=== PATIENT | male | born 1970 | race Two or more races ===

== ENCOUNTER 2017-08-30 14:15 | Inpatient (IN) | payer OTHER ==
[~2017-08-30] VITALS: Ht 182.9 cm; Wt 107.0 kg
[2017-08-30 14:23] VITALS: Ht 182.9 cm; Wt 107.0 kg
[2017-08-30 15:03] LABS: microscopic required? NO
[2017-08-30 15:10] LABS: UA SPECIFIC GRAVITY <=1.005 (1.005-1.035); urine erythrocyte NEGATIVE (NEGATIVE)
[2017-08-30 15:15] LABS: BASOPHIL % 0.4 % (0-2); PLATELET COUNT 162 x10^3mcL (130-400); RED CELL DISTRIBUTION WIDTH 13.6 % (11.5-14.5)
[2017-08-30 15:29] LABS: CALCIUM 8.4 mg/dL (8.5-10.1); CARBON DIOXIDE 26.6 mmol/L (21-32); CHLORIDE SERUM 98 mmol/L (98-107); CREATININE SERUM 0.8 mg/dL (0.7-1.3); GFR1 > 60 mL/min; GLUCOSE SERUM 139 mg/dL (74-106); POTASSIUM SERUM 3.3 mmol/L (3.5-5.1); SODIUM SERUM 135 mmol/L (136-145)
[2017-08-30 15:30] LABS: AMPHETAMINE QUAL UR NONE DETECTED (NEG <=1000)
[2017-08-30 15:47] LABS: ALBUMIN 3.8 g/dL (3.4-5.0); ALKALINE PHOSPHATASE 136 U/L (46-116); ALT/SGPT 128 U/L (16-63); AMYLASE 52 U/L (25-115); AST/SGOT 99 U/L (15-37); CHOLESTEROL 138 mg/dL (<200); HDL CHOLESTEROL 68 mg/dL (40-60); LIPASE 511 IU/L (73-393); MAGNESIUM 1.8 mg/dL (1.8-2.4); T4(THYROXINE) 5.3 ug/dL (4.7-13.3)
[2017-08-30 17:38] LABS: T3 TOTAL 0.94 ng/mL
[2017-08-30 17:48] LABS: FREE T4 0.92 ng/dL (0.76-1.46); FREE THYROXINE INDEX 2.2 ug/dL (1.4-4.5); T4(THYROXINE) 5.7 ug/dL (4.7-13.3)
[2017-08-30 18:20] VITALS: BP 127/84
[2017-08-30 22:04] VITALS: BP 108/76
[2017-08-31 05:21] VITALS: BP 142/90
[2017-08-31 06:25] LABS: CALCIUM 8.1 mg/dL (8.5-10.1); CARBON DIOXIDE 27.3 mmol/L (21-32); CHLORIDE SERUM 104 mmol/L (98-107); CREATININE SERUM 0.8 mg/dL (0.7-1.3); GFR1 > 60 mL/min; GLUCOSE SERUM 117 mg/dL (74-106); SODIUM SERUM 139 mmol/L (136-145)
[2017-08-31 06:28] LABS: BASOPHIL % 0.6 % (0-2); PLATELET COUNT 160 x10^3mcL (130-400); RED CELL DISTRIBUTION WIDTH 13.8 % (11.5-14.5)
[2017-08-31 09:40] VITALS: BP 137/88
[2017-08-31 14:12] VITALS: BP 127/63
[2017-08-31 17:56] VITALS: BP 125/54
[2017-08-31 21:17] VITALS: BP 130/81
[2017-09-01 05:27] VITALS: BP 128/82
[2017-09-01 06:49] LABS: CALCIUM 8.8 mg/dL (8.5-10.1); CARBON DIOXIDE 28.5 mmol/L (21-32); CHLORIDE SERUM 105 mmol/L (98-107); CREATININE SERUM 0.8 mg/dL (0.7-1.3); GFR1 > 60 mL/min; GLUCOSE SERUM 107 mg/dL (74-106); POTASSIUM SERUM 4.2 mmol/L (3.5-5.1); SODIUM SERUM 140 mmol/L (136-145)
[2017-09-01 09:55] VITALS: BP 130/64
[2017-09-01] MEDS ORDERED: CAR60 PO (10:33)
[2017-09-01] MEDS ORDERED: XARELTO20 M1 PO (10:58)
[2017-09-01 11:03] VITALS: BP 130/64
== END 2017-09-01 11:35 | disposition home or self-care (01) | DRG 310 ==
LOC: ED 14:15 → DU 16:11
PROVIDERS: Emergency Medicine; Family Medicine
DX: I48.91 Unspecified atrial fibrillation (principal); E87.6 Hypokalemia; R73.03 Prediabetes; I10 Essential (primary) hypertension; R74.0 Nonspecific elevation of levels of transaminase and lactic acid dehydrogenase [LDH]; Z60.2 Problems related to living alone; Z53.29 Procedure and treatment not carried out because of patient's decision for other reasons; E66.9 Obesity, unspecified; Z83.3 Family history of diabetes mellitus; Z82.49 Family history of ischemic heart disease and other diseases of the circulatory system; Z68.32 Body mass index [BMI] 32.0-32.9, adult
CPT/HCPCS: 83880; 84439; J3480; J3490; J7030; J7040; Q0092

== ENCOUNTER 2017-11-06 07:43 | Inpatient (IN) | payer OTHER ==
[~2017-11-06] VITALS: Ht 182.9 cm; Wt 106.3 kg
[~2017-11-06 07:43] MED LIST: CAR60 PO; XARELTO20 M1 PO
[2017-11-06 08:42] LABS: BASOPHIL % 1.4 % (0-2); PLATELET COUNT 181 x10^3mcL (130-400)
[2017-11-06 08:46] LABS: RED CELL DISTRIBUTION WIDTH 17.6 % (11.5-14.5)
[2017-11-06 08:51] LABS: CALCIUM 8.6 mg/dL (8.5-10.1); CARBON DIOXIDE 28.8 mmol/L (21-32); CHLORIDE SERUM 101 mmol/L (98-107); CREATININE SERUM 1.1 mg/dL (0.7-1.3); GFR1 > 60 mL/min; GLUCOSE SERUM 153 mg/dL (74-106); POTASSIUM SERUM 3.9 mmol/L (3.5-5.1); SODIUM SERUM 136 mmol/L (136-145)
[2017-11-06 08:55] LABS: ALBUMIN 3.7 g/dL (3.4-5.0); ALKALINE PHOSPHATASE 155 U/L (46-116); ALT/SGPT 145 U/L (16-63); AST/SGOT 81 U/L (15-37); BILIRUBIN TOTAL 0.73 mg/dL (0.20-1.00); CHOLESTEROL 140 mg/dL (<200); HDL CHOLESTEROL 71 mg/dL (40-60); PHOSPHOROUS 4.2 mg/dL (2.5-4.9); URIC ACID 4.9 mg/dL (3.5-7.2)
[2017-11-06 11:28] VITALS: BP 124/89
[2017-11-06 13:38] VITALS: BP 130/96
[2017-11-06 13:39] LABS: MAGNESIUM 1.8 mg/dL (1.8-2.4)
[2017-11-06 13:46] LABS: T3 TOTAL 1.2 ng/mL
[2017-11-06 14:11] LABS: FREE T4 0.76 ng/dL (0.76-1.46); FREE THYROXINE INDEX 1.7 ug/dL (1.4-4.5); T4(THYROXINE) 4.8 ug/dL (4.7-13.3)
[2017-11-06 17:32] VITALS: BP 133/90
[2017-11-06 20:44] VITALS: BP 125/93
[2017-11-07 05:29] VITALS: BP 105/64; BP 127/92
[2017-11-07 06:20] LABS: CALCIUM 8.8 mg/dL (8.5-10.1); CHLORIDE SERUM 104 mmol/L (98-107); CREATININE SERUM 0.9 mg/dL (0.7-1.3); GFR1 > 60 mL/min; GLUCOSE SERUM 116 mg/dL (74-106); POTASSIUM SERUM 3.8 mmol/L (3.5-5.1); SODIUM SERUM 139 mmol/L (136-145)
[2017-11-07 06:25] LABS: BASOPHIL % 1.5 % (0-2); PLATELET COUNT 186 x10^3mcL (130-400)
[2017-11-07 06:37] LABS: RED CELL DISTRIBUTION WIDTH 17.8 % (11.5-14.5)
[2017-11-07 15:16] VITALS: BP 127/92
[2017-11-07] MEDS ORDERED: CAR60 PO (15:21)
[2017-11-07] MEDS ORDERED: XARELTO20 M1 PO (15:27)
[2017-11-07 16:05] VITALS: Ht 182.9 cm; Wt 106.3 kg
== END 2017-11-07 17:20 | disposition home or self-care (01) | DRG 310 ==
LOC: ED 07:43 → DU 09:49
PROVIDERS: Emergency Medicine; Internal Medicine
DX: I48.91 Unspecified atrial fibrillation (principal); I10 Essential (primary) hypertension; R74.0 Nonspecific elevation of levels of transaminase and lactic acid dehydrogenase [LDH]; E66.9 Obesity, unspecified; Z68.31 Body mass index [BMI] 31.0-31.9, adult; Z83.3 Family history of diabetes mellitus; Z60.2 Problems related to living alone
CPT/HCPCS: 83880; 84439; J3490; J7030; Q0092